=== PATIENT | female | born 1990 ===

== ENCOUNTER 2018-11-24 05:10 | Day surgery (SDC) | payer OTHER ==
[2018-11-24] MEDS ORDERED: Tylenol #3 PO (08:28)
[2018-11-24] MEDS ORDERED: MORGIDOX100 MG PO (08:28)
== END 2018-11-24 12:12 | disposition home or self-care (01) ==
LOC: CIR.AMB 05:10 → EDBD 11:15 → CIR.AMB 11:15
DX: N84.0 Polyp of corpus uteri (principal); D25.0 Submucous leiomyoma of uterus